=== PATIENT | male | born 1970 | race Caucasian/White ===

== ENCOUNTER 2017-11-13 16:42 | Emergency (ER) | payer MEDICARE, MEDICAID ==
[~2017-11-13] VITALS: Ht 175.3 cm; Wt 96.2 kg
[~2017-11-13 16:42] MED LIST: ASPI-1265 PO; DIVA-81 PO; LEVE10002 PO; LOP25T PO; MELO-102 PO; SIMV40TA4 PO
[2017-11-13 16:55] VITALS: BP 116/86
[2017-11-13] MEDS ORDERED: cyclobenzaprine 10mg tablet PO ONE (17:25)
[2017-11-13] MEDS ORDERED: ketorolac trometh inj. 60 MG/2 ML VIAL IM ONE (17:25)
[2017-11-13] MEDS ORDERED: HYDROcodone/acetaminophen 5mg/325mg tablet PO ONE (17:25)
[2017-11-13] MEDS ORDERED: CYCL-1 PO (17:26)
[2017-11-13] MEDS ORDERED: LIDO700A32 TOP (17:26)
[2017-11-13] MEDS ORDERED: DICL100G15 TOP (17:26)
== END 2017-11-13 18:01 | disposition home or self-care (01) ==
LOC: ER 16:43
DX: M54.5 Low back pain (principal); M54.16 Radiculopathy, lumbar region; Z79.82 Long term (current) use of aspirin
CPT/HCPCS: 96372; 99284; J1885

== ENCOUNTER 2019-01-06 12:19 | Emergency (ER) | payer MEDICARE, MEDICAID ==
[~2019-01-06] VITALS: Ht 175.3 cm; Wt 84.0 kg
[~2019-01-06 12:19] MED LIST changes: +BENZ-16 PO; +CYCL-1 PO; +DICL100G15 TOP; +LIDO700A32 TOP
[2019-01-06 12:35] VITALS: BP 120/78
[2019-01-06] MEDS ORDERED: AMOX-580 PO (13:01)
== END 2019-01-06 13:11 | disposition home or self-care (01) ==
LOC: ER 12:20
DX: J32.9 Chronic sinusitis, unspecified (principal); H10.9 Unspecified conjunctivitis; E78.00 Pure hypercholesterolemia, unspecified; I10 Essential (primary) hypertension; I25.2 Old myocardial infarction; F17.200 Nicotine dependence, unspecified, uncomplicated; Z79.899 Other long term (current) drug therapy; Z79.82 Long term (current) use of aspirin
CPT/HCPCS: 99283

== ENCOUNTER 2022-03-01 14:48 | Outpatient (CLI) | payer MEDICARE, MEDICAID ==
[~2022-03-01 14:48] MED LIST changes: -BENZ-16 PO; +SIMV-45 PO; -SIMV40TA4 PO
== END 2022-03-01 23:59 | disposition home or self-care (01) ==
LOC: RAD 14:48
PROVIDERS: ATTEND Nurse Practitioner Family
DX: G40.009 Localization-related (focal) (partial) idiopathic epilepsy and epileptic syndromes with seizures of localized onset, not intractable, without status epilepticus (principal)
CPT/HCPCS: 95816